=== PATIENT | female | born 1980 | race Caucasian/White ===

== ENCOUNTER 2018-12-01 11:46 | Inpatient (IN) | payer BC ==
--- NOTE | 2018-11-27 10:37 | HP ---
HISTORY OF PRESENT ILLNESS 38 year old female with neck pain. Initially began with headaches now resolved, however LUE pain, burning and neuropathy. Worsened last week with numbness. She is able to mushroom picker objects with substantial weight, however objects such as paper fall from her hand. Due for surgery Saturday with Dr. Roland. Denies RUSSELL, dizziness, changes in gait. PCP: vimal norwood Recent travel: Family History: Social History: Smoking: Alcohol: Drugs: REVIEW OF SYSTEMS CONSTITUTIONAL: Absent: fever, chills, diaphoresis, generalized weakness, malaise, loss of appetite, weight change HEENT: Absent: rhinorrhea, nasal congestion, throat pain, throat swelling, difficulty swallowing, mouth swelling, ear pain, eye pain, visual changes CARDIOVASCULAR: Absent: chest pain, syncope, palpitations, irregular heart rate, lightheadedness , peripheral edema RESPIRATORY: Absent: cough, shortness of breath, dyspnea with exertion, orthopnea, wheezing, stridor, hemoptysis GASTROINTESTINAL: Absent: abdominal pain, abdominal distension, nausea, vomiting, diarrhea, constipation, melena, hematochezia GENITOURINARY: Absent: dysuria, frequency, urgency, hesitancy, hematuria, flank pain, genital pain MUSCULOSKELETAL: LUE pain Absent: myalgia, arthralgia, joint swelling, back pain, neck pain SKIN: Absent: rash, itching, pallor HEMATOLOGIC/IMMUNOLOGIC: Absent: easy bleeding, easy bruising, lymphadenopathy, frequent infections ENDOCRINE: Absent: unexplained weight gain, unexplained weight loss, heat intolerance, cold intolerance NEUROLOGIC: paresthesias, numb, tingling, neck pain Absent: headache, focal weakness or , dizziness, unsteady gait, seizure, mental status changes, bladder or bowel incontinence PSYCHIATRIC: Absent: anxiety, depression, suicidal or homicidal ideation, hallucinations. PHYSICAL EXAMINATION: GENERAL: Awake, alert, and fully oriented, in no acute distress. HEAD: Normal with no signs of trauma. EYES: Pupils equal, round and reactive to light, extraocular movements intact, sclera anicteric, conjunctiva clear. No lid lag. EARS, NOSE, THROAT: Ears normal, nares patent, oropharynx clear without exudates. Moist mucous membranes. NECK: Normal range of motion, supple without lymphadenopathy, JVD, or masses. LUNGS: Breath sounds equal, clear to auscultation bilaterally. No wheezes, and no crackles. No accessory muscle use. HEART: Regular rate and rhythm, normal S1 and S2 without murmur, rub or gallop. ABDOMEN: Soft, nontender, not distended, normoactive bowel sounds, no guarding, no rebound, no masses. No hepatomegaly or splenomegaly. MUSCULOSKELETAL: Normal range of motion at all joints. No bony deformities or tenderness. No CVA tenderness. UPPER EXTREMITIES: 2+ pulses, warm, well-perfused. No cyanosis. No clubbing. No peripheral edema. LOWER EXTREMITIES: 2+ pulses, warm, well-perfused. No calf tenderness. No peripheral edema. NEUROLOGICAL: Cranial nerves II-XII intact. Normal speech. Normal gait. PSYCHIATRIC: Cooperative. Good eye contact. Appropriate mood and affect. SKIN: Warm, dry, normal turgor, no rashes or lesions noted, normal capillary refill. ASSESSMENT/PLAN: 1. C5-C7 anterior cervical discectomy and fusion - CBC, CMP, UA, EKG within normal limits - Recently pain medication changed from hydromorphone with ibuprofen to acetaminophen - Pre op clearance obtained from primary pcp in paper chart
[2018-11-28 08:08] VITALS: BMI 39.9
[2018-12-01] MEDS ORDERED: HEPARIN NA (PORCINE) 5,000 UNITS/ML 1ML VIAL ONE (12:12)
[2018-12-01] MEDS ORDERED: THROMBIN (BOVINE) 5,000 UNIT VIAL TP ONE (12:12)
[2018-12-01] MEDS ORDERED: BENZOIN TINCTURE SWABSTICK TP ONE ×2 (12:34→18:13)
[2018-12-01] MEDS ORDERED: MIDAZOLAM HCL 2 MG/2 ML SINGLE DOSE VIAL ONE (12:50)
[2018-12-01] MEDS ORDERED: fentaNYL CITRATE 250 MCG/5 ML VIAL ONE (12:50)
[2018-12-01] MEDS ORDERED: ceFAZolin SODIUM 1 GM VIAL ONE ×2 (12:52→18:32)
[2018-12-01] MEDS ORDERED: VANCOMYCIN 1,000 MG VIAL (RESTRICTED TO ID ONLY) ONE (12:52)
[2018-12-01] MEDS ORDERED: LIDOCAINE HCL/PF 2% SDV 5ML VIAL ONE (12:54)
[2018-12-01] MEDS ORDERED: PROPOFOL 20 ML ONE ×23 (12:54→17:42)
[2018-12-01] MEDS ORDERED: DEXAMETHASONE SOD PHOSPHATE 4 MG/1 ML VIAL ONE (13:19)
[2018-12-01] MEDS ORDERED: ROCURONIUM BROMIDE 50 MG/5 ML VIAL ONE (13:27)
[2018-12-01] MEDS ORDERED: SUCCINYLCHOLINE CHLORIDE 200 MG/10 ML VIAL ONE (13:27)
[2018-12-01] MEDS ORDERED: ceFAZolin SODIUM 1 GM VIAL IVPB ONE (13:32)
[2018-12-01] MEDS ORDERED: TRANEXAMIC ACID 1000 MG/10 ML VIAL ONE ×2 (14:11→18:12)
[2018-12-01] MEDS ORDERED: VANCOMYCIN 1,000 MG VIAL (RESTRICTED TO ID ONLY) IVPB ONE (14:42)
[2018-12-01] MEDS ORDERED: PROMETHAZINE HCL 25 MG/1 ML VIAL IVPUSH PRN (15:40)
[2018-12-01] MEDS ORDERED: ONDANSETRON 4 MG/2 ML VIAL IVPUSH PRN ×2 (15:40→15:41)
[2018-12-01] MEDS ORDERED: PROMETHAZINE HCL 25 MG/1 ML VIAL IVPB PRN (15:41)
[2018-12-01] MEDS ORDERED: DEXAMETHASONE SOD PHOSPHATE 4 MG/1 ML VIAL IVPUSH PRN (15:41)
[2018-12-01] MEDS ORDERED: HYDROmorphone *PCA* 10MG/50ML DISP.SYRIN PCA SCH (15:45)
[2018-12-01] MEDS ORDERED: METOPROLOL TARTRATE 5 MG/5 ML VIAL ONE (15:51)
[2018-12-01] MEDS ORDERED: HYDROmorphone *PCA* 10MG/50ML DISP.SYRIN PCA ONE (18:34)
[2018-12-01] MEDS ORDERED: ACETAMINOPHEN 1000 MG/100 ML VIAL (NON FORMULARY) IVPB PRN (18:57)
[2018-12-01] MEDS ORDERED: ZOLPIDEM TARTRATE 5 MG TABLET PO PRN ×2 (19:14→19:15)
--- NOTE | 2018-12-01 19:15 | PN ---
Progress Note (short form) - Note Progress Note: 38F s/p C4-C5, C5-C6, C6-C7 discectomies; C4, C5, C6, C7 partial corpectomies; C4-C5, C5-C6, C6-C7 anterior cervical decompression and instrumented fusion POD #0. -Admit to ICU x 24 hrs. for airway observation. -Maintain head of bed 45-60 degrees. -Pain medication: per anaesthesia team; NO NSAID's. -DVT PPx: -Mechanical only: MALATHI's, SCD's. -Post-op Ancef x 2 doses. -Decadron 10mg IV x 1 12/01/2018 at 7am. -f/u AM labs. -Incentive spirometry. -PT/OT/Rehab, OOB. -PWB B/L UE: -No heavy lifting, bending or twisting. -WBAT B/L LE. -d/c Lazo catheter at midnight; f/u TOV (8 hours max). -Keep dressing clean & dry. -Advance diet as tolerated. -B/L UE & LE NV checks. -Care per ICU & primary medical hospitalist teams. -Discharge planning: f/u [facility] [place] office Saturday12/12/2017; call for appointment; . Isac Roland MD (Orthopaedic Surgery).
--- NOTE | 2018-12-01 19:19 | OP ---
Operative Note - Note: Operative Date: 12/01/18 Pre-Operative Diagnosis: 1. C4-C5, C5-C6, C6-C7 disc herniations with cervical radiculopathy. 2. C4-C7 spinal stenosis with neurogenic claudication. 3. Rapid neurological decline with B/L UE & LE weakness. 4. Kyphosis. 5. C4-C7 segmental instability Operation: 1. C4-C5, C5-C6, C6-C7 discectomies. 2. C4, C5, C6, C7 partial corpectomies. 3. Insertion C4-C5, C5-C6, C6-C7 biomechanical devices. 4. C4- C7 anterior instrumentation. 5. C4-C5, C5-C6, C6-C7 arthrodesis. 6. Bone autograft. 7. Bone allograft. 8. Intra-operative biplanar fluoroscopy. 9. Intra-operative neural monitoring. Implants: Cages: C3-C4: Size #8 RTI Fortilink. C4-C5: Size #7 RTI Fortilink. C5-C6: Size #8 RTI Fortilink. C6-C7: Size #7 RTI Fortilink. Plate: 55mm Precision Spine Slimplicity Plate. 8 x 4.0x12mm screws. Surgeon: Isac Roland Court Crier: Gabriel Roland Anesthesiologist/FINGERPRINT TECHNICIAN: Dale Faye Anesthesia: General Specimens Removed: C4-C5, C5-C6, C6-C7 discs Estimated Blood Loss (mls): 180 Fluid Volume Replaced (mls): 3,500 (Crystalloid) Operative Report Dictated: Yes
--- NOTE | 2018-12-01 20:56 | CONSULT ---
Consultation: REQUESTING PROVIDER: Dr. Roland CONSULT REQUEST: We have been asked to medically evaluate this patient for ( Medical Management). HISTORY OF PRESENT ILLNESS: This is a 38 y/o woman PMHx Chronic Cervical Pain. s/p C3-C7 Cervical Discectomy and Fusion POD #0. Patient is awake, alert and oriented reports cervical and throat pain, on FACILITATOR pump. Patient denies numbness, RUSSELL, SOB, CP, AP , N/V. Lazo noted with yellow urine in collection bag. REVIEW OF SYSTEMS: CONSTITUTIONAL: Absent: fever, chills, diaphoresis, generalized weakness, malaise, loss of appetite, weight change HEENT: throat pain Absent: rhinorrhea, nasal congestion, throat swelling, difficulty swallowing, mouth swelling, ear pain, eye pain, visual changes CARDIOVASCULAR: Absent: chest pain, syncope, palpitations, irregular heart rate, lightheadedness , peripheral edema RESPIRATORY: Absent: cough, shortness of breath, dyspnea with exertion, orthopnea, wheezing, stridor, hemoptysis GASTROINTESTINAL: Absent: abdominal pain, abdominal distension, nausea, vomiting, diarrhea, constipation, melena, hematochezia GENITOURINARY: Absent: dysuria, frequency, urgency, hesitancy, hematuria, flank pain, genital pain MUSCULOSKELETAL: neck pain Absent: myalgia, arthralgia, joint swelling, back pain SKIN: Absent: rash, itching, pallor HEMATOLOGIC/IMMUNOLOGIC: Absent: easy bleeding, easy bruising, lymphadenopathy, frequent infections ENDOCRINE: Absent: unexplained weight gain, unexplained weight loss, heat intolerance, cold intolerance NEUROLOGIC: Absent: headache, focal weakness or paresthesias, dizziness, unsteady gait, seizure, mental status changes, bladder or bowel incontinence PSYCHIATRIC: Absent: anxiety, depression, suicidal or homicidal ideation, hallucinations. PHYSICAL EXAMINATION Vital Signs - 24 hr 12/01/18 12/01/18 12/01/18 12:40 12:41 18:47 Temperature 97.7 F 99.6 F Pulse Rate 98 H 118 H Respiratory 20 21 H Rate Blood Pressure 111/65 126/61 O2 Sat by Pulse 98 100 Oximetry (%) 12/01/18 12/01/18 12/01/18 19:00 19:12 19:15 Temperature Pulse Rate 114 H 110 H 112 H Respiratory 16 20 14 Rate Blood Pressure 130/65 130/65 127/66 O2 Sat by Pulse 100 100 Oximetry (%) 12/01/18 19:30 Temperature Pulse Rate 107 H Respiratory 12 Rate Blood Pressure 122/82 O2 Sat by Pulse 100 Oximetry (%) GENERAL: Awake, alert, and fully oriented, in no acute distress. HEAD: Normal with no signs of trauma. EYES: Pupils equal, round and reactive to light, extraocular movements intact, sclera anicteric, conjunctiva clear. No lid lag. EARS, NOSE, THROAT: Ears normal, nares patent, oropharynx clear without exudates. Dry mucous membranes. NECK: Limited range of motion, surgical dressing C/D/I, supple without lymphadenopathy, JVD, or masses. LUNGS: Breath sounds equal, clear to auscultation bilaterally. No wheezes, and no crackles. No accessory muscle use. HEART: Regular rate and rhythm, normal S1 and S2 without murmur, rub or gallop. ABDOMEN: Obese, hypoactive bowel sounds, soft, nontender, not distended, no guarding, no rebound, no masses. No hepatomegaly or splenomegaly. MUSCULOSKELETAL: Normal range of motion at all joints. No bony deformities or tenderness. No CVA tenderness. UPPER EXTREMITIES: 2+ pulses, warm, well-perfused. No cyanosis. No clubbing. Cap refill <2 seconds. No peripheral edema. LOWER EXTREMITIES: 2+ pulses, warm, well-perfused. No calf tenderness. No peripheral edema. SCDs NEUROLOGICAL: Cranial nerves II-XII intact. Normal speech. Gait not observed. PSYCHIATRIC: Cooperative. Good eye contact. Appropriate mood and affect. SKIN: Warm, dry, normal turgor, no rashes or lesions noted. Laboratory Results - last 24 hr 12/01/18 12/01/18 12/01/18 12:14 12:14 12:55 Serum , Qual Negative Blood Type A POSITIVE A POSITIVE Antibody Screen Negative Active Medications Generic Name Dose Route Start Last Admin Trade Name Freq PRN Reason Stop Dose Admin Acetaminophen 1,000 mg 12/01/18 19:15 Ofirmev Injection - IVPB 12/02/18 11:16 Q8H TELLO Dexamethasone Sodium Phosphate 4 mg 12/01/18 15:41 Decadron Injection - IVPUSH ONCE PRN NAUSEA AND/OR VOMITING Dexamethasone Sodium Phosphate 10 mg 12/02/18 07:00 Decadron Injection - IVPUSH 12/02/18 07:01 ONCE ONE Diphenhydramine HCl 12.5 mg 12/01/18 15:41 Benadryl Injection - IVPUSH ONCE PRN FOR ITCHING Fentanyl 50 mcg 12/01/18 15:40 Sublimaze Injection - IVPUSH [id number] PRN PAIN-PACU ORDER X 4 DOSES ONLY Hydromorphone HCl 10 mg 12/01/18 15:45 Dilaudid Learning Coach - FACILITATOR 12/08/18 15:41 FACILITATOR TELLO Protocol Lactated Ringer's 1,000 mls @ 125 mls/hr 12/01/18 19:00 Lactated Ringers Solution IV ASDIR TELLO Cefazolin Sodium/Dextrose 2 gm in 50 mls @ 100 mls/hr 12/02/18 02:00 Ancef 2 Gm Premixed Ivpb - IVPB 12/02/18 10:29 Q8H TELLO Ondansetron HCl 4 mg 12/01/18 15:40 Zofran Injection IVPUSH Q6H PRN NAUSEA AND/OR VOMITING Ondansetron HCl 4 mg 12/01/18 15:41 Zofran Injection IVPUSH Q4H PRN NAUSEA AND/OR VOMITING Promethazine HCl 12.5 mg 12/01/18 15:40 Phenergan Injection - IVPUSH Q6H PRN NAUSEA-FOR RESCUE AFTER 15 MIN Promethazine HCl 12.5 mg 12/01/18 15:41 Phenergan Injection - IVPB Q6H PRN NAUSEA AND/OR VOMITING Zolpidem Tartrate 10 mg 12/01/18 19:15 Ambien - PO HS PRN INSOMNIA ASSESSMENT/PLAN: This is a 38 y/o woman PMHx Chronic Cervical Pain. s/p C3-C7 Cervical Discectomy and Fusion POD #0. Plan: Continue Ortho regimen Neurovascular checks HOB elevated Incentive spirometry Pain Management- on FACILITATOR Pump PT Monitor CBC, BMP Monitor vitals Dispo: We will continue to follow the patient. Thank you for this consultative opportunity. Problem List - Problems (1) S/P cervical discectomy Code(s): Z98.890 - OTHER SPECIFIED POSTPROCEDURAL STATES (2) Cervical pain Code(s): M54.2 - CERVICALGIA Visit type - Emergency Visit Emergency Visit: No - New Patient This patient is new to me today: Yes Date on this admission: 12/01/18 - Critical Care Critical Care patient: No
--- NOTE | 2018-12-01 21:34 | CONSULT ---
Consult Consult Specialty:: ICU Referred by:: jose daniel Reason for Consultation:: post-op ICU monitoring - History of Present Illness Chief Complaint: neck pain History of Present Illness: 38 yr old with chronic neck pain that progressed to difficulty grasping and increasing pain that prompted surgery. denies trauma to neck but recalls spending alot of time in the same position leaning on her left arm that causing irritation and pain. feels this may have led to her current increasing neck pain. c/o occasional constipation denies chest pain, palpitations, edema, n/v, dysuria, fever, diarrhea. received flu vaccine in jul 2018 Allergies/adverse reactions: does not tolerate hydrocodone po, makes her jumpy, excitable and hungry (tolerates hydromorphone well) Travel: trip to [place] in the last 6 months Surghx: tonsilectomy at age 3 pmhx: denies htn, dm, cancers Soc hx: denies smoking, etoh and illicit drug use fmhx: denies htn, dm, cancers, rheumatological conditions - History Source History Provided By: Patient Limitations to Obtaining History: No Limitations - Past Medical History ...LMP Comment: pt has IUD - Past Surgical History Past Surgical History: Yes: Tonsillectomy (age 3) - Alcohol/Substance Use Hx Alcohol Use: Yes (socially) History of Substance Use: reports: None - Smoking History Smoking history: Never smoked Have you smoked in the past 12 months: No Home Medications - Allergies Allergies/Adverse Reactions: Allergies Allergy/AdvReac Type Severity Reaction Status Date / Time No Known Drug Allergies Allergy Verified 11/28/18 08:12 hydrocodone AdvReac Mild Verified 12/01/18 21:29 - Home Medications Home Medications: Ambulatory Orders Hydrocodone/Acetaminophen [Hydrocodone-Acetamin 7.5-300] 1 each PO BID PRN 11/28 Zolpidem Tartrate [Ambien] 10 mg PO HS 11/28/18 Docusate Sodium [Colace -] 100 mg PO BID capsule 12/02/18 Polyethylene Glycol 3350 [Miralax 119 gm Btl -] 17 gm PO DAILY bottle 12/02/18 Sennosides/Docusate Sodium [Pericolace -] 1 tablet PO DAILY tablet 12/02/18 Family Disease History - Family Disease History Family History: Denies Review of Systems - Review of Systems Constitutional: reports: No Symptoms Eyes: reports: No Symptoms HENT: reports: No Symptoms Neck: reports: Pain on Movement, Tenderness Cardiovascular: reports: No Symptoms Respiratory: reports: No Symptoms Gastrointestinal: reports: Constipation Genitourinary: reports: No Symptoms Endocrine: reports: No Symptoms Hematology/Lymphatic: reports: No Symptoms Physical Exam Vital Signs: Vital Signs Temperature 99.6 F 12/01/18 20:45 Pulse Rate 106 H 12/01/18 20:45 Respiratory Rate 15 12/01/18 20:45 Blood Pressure 111/74 12/01/18 20:45 O2 Sat by Pulse Oximetry (%) 100 12/01/18 21:13 Constitutional: Yes: No Distress, Calm Eyes: Yes: Conjunctiva Clear, EOM Intact, PERRL HENT: Yes: Normocephalic. No: Thrush Neck: Yes: Trachea Midline, Tenderness (recent post-op), Other (dressing anteriorly is CDI) Cardiovascular: Yes: Regular Rate and Rhythm. No: Murmur Respiratory: Yes: Regular, CTA Bilaterally (anterior auscultation) Gastrointestinal: Yes: Normal Bowel Sounds, Soft Extremities: Yes: WNL Edema: No Peripheral Pulses WNL: Yes Wound/Incision: Yes: Clean/Dry, Dressing Dry and Intact Neurological: Yes: Alert, Oriented ...Motor Strength: WNL Assessment/Plan 38 yr old woman with chronic neck pain, POD#0 from cervical spine fusion being monitered for airway in the ICU post-op. post-op instructions are per ortho progress note. as per operative note surgeries performed: C4-C5, C5-C6, C6-C7 discectomies; C4 , C5, C6, C7 partial corpectomies; C4-C5, C5-C6, C6-C7 anterior cervical decompression and instrumented fusion POD #0. Ortho - Maintain head of bed 45-60 degrees, pt was unable to tolerate >35deg elevation of HOB at this time, will raise as tolerated Pain control with PACKAGER MACHINE pump Post-op Ancef x 2 doses. Decadron 10mg IV x 1 12/01/2018 at 7am. f/u AM labs. Incentive spirometry PT/OT/Rehab, OOB. Keep dressing clean & dry -B/L UE & LE NV checks. DVT PPx: Mechanical only: MALATHI's, SCD's. d/c Lazo catheter at midnight; f/u TOV (8 hours max). Activity: PWB B/L UE: No heavy lifting, bending or twisting. WBAT B/L LE. FEN - IVF LR@125cc/hr -Advance diet as tolerated.
[2018-12-01] MEDS: ACETAMINOPHEN 1000 MG/100 ML VIAL (NON FORMULARY) IVPB SCH (22:08)
[2018-12-01] MEDS: LACTATED RINGERS SOLUTION 1,000 ML IV SCH (22:08)
[2018-12-02] MEDS ORDERED: ceFAZolin 2 GRAM PREMIX BAG IVPB SCH (02:00)
[2018-12-02] MEDS: ACETAMINOPHEN 1000 MG/100 ML VIAL (NON FORMULARY) IVPB SCH ×2 (03:18→12:00)
[2018-12-02] MEDS: CEFAZOLIN 2 GM/D5W 2 GM/50 ML ML IVPB SCH ×2 (03:18→09:45)
[2018-12-02] MEDS: LACTATED RINGERS SOLUTION 1,000 ML IV SCH (03:18)
[2018-12-02 06:20] LABS: HEMATOCRIT 34.4 % (32.4-45.2); HEMOGLOBIN 11.9 GM/dL (10.7-15.3); MCH 28.5 pg (25.7-33.7); MCHC 34.6 g/dl (32.0-36.0); MEAN CELL VOLUME 82.3 fl (80-96); MEAN PLT VOLUME 8.4 fl (7.5-11.1); PLATELET COUNT 238 K/MM3 (134-434); RBC 4.18 M/mm3 (3.60-5.2); RDW 13.7 % (11.6-15.6); WHITE BLOOD COUNT 11.1 K/mm3 (4.0-10.0)
[2018-12-02 06:43] LABS: ANION GAP 6 MMOL/L (8-16); BLOOD UREA NITROGEN 8 mg/dL (7-18); CALCIUM 8.1 mg/dL (8.5-10.1); CHLORIDE 104 mmol/L (98-107); CO2 28 mmol/L (21-32); CREATININE 0.9 mg/dL (0.55-1.3); GLUCOSE,RANDOM 99 mg/dL (74-106); POTASSIUM 3.9 mmol/L (3.5-5.1); SODIUM 138 mmol/L (136-145)
[2018-12-02] MEDS ORDERED: DEXAMETHASONE SOD PHOSPHATE 10 MG/1 ML VIAL IVPUSH ONE (07:00)
--- NOTE | 2018-12-02 08:10 | PN ---
Progress Note (short form) - Note Progress Note: POD #1 - s/p C4-C7 ACDF under GA With dilaudid SIX SIGMA PROJECT MANAGER for postop pain management. VSS. Pt. doing well, sitting up comfortably in bed. No complaints. Possible discharge later today. Will discontinue SIX SIGMA PROJECT MANAGER and order percocet.
[2018-12-02] MEDS ORDERED: oxyCODONE HCL 5 MG TABLET PO PRN ×2 (08:13→08:15)
--- NOTE | 2018-12-02 09:21 | PN ---
Physical Exam: SUBJECTIVE: Patient seen and examined in icu. feels well, denies any shortness of breath. ate breakfast and tolerated it, reports some soreness in throat. OBJECTIVE: bowel regimen incentive spirometer s/p C3-C7 cervical discectomy and Fusion POD #1 Vital Signs Period Temp Pulse Resp BP Sys/Danielle Pulse Ox Last 24 Hr 97.7 F-99.6 F 94-118 10-21 111-144/61-86 98-100 GENERAL: The patient is awake, alert, and fully oriented, in no acute distress. HEAD: Normal with no signs of trauma. EYES: PERRL, extraocular movements intact, sclera anicteric, conjunctiva clear. No ptosis. ENT: Ears normal, nares patent, oropharynx clear without exudates, moist mucous membranes. NECK: anterior surgical dressing c/d/ LUNGS: Breath sounds equal, diminished bilaterally HEART: Regular rate and rhythm, S1, S2 without murmur, rub or gallop. ABDOMEN: Soft, nontender, nondistended, normoactive bowel sounds, no guarding, no rebound, no hepatosplenomegaly, no masses. EXTREMITIES: no edema. NEUROLOGICAL: Normal speech, gait not observed. PSYCH: Normal mood, normal affect. Laboratory Results - last 24 hr 12/01/18 12/01/18 12/01/18 12:14 12:14 12:55 WBC RBC Hgb Hct MCV MCH MCHC RDW Plt Count MPV Sodium Potassium Chloride Carbon Dioxide Anion Gap BUN Creatinine Creat Clearance w eGFR Random Glucose Calcium Serum , Qual Negative Blood Type A POSITIVE A POSITIVE Antibody Screen Negative 12/02/18 12/02/18 05:30 05:30 WBC 11.1 H RBC 4.18 Hgb 11.9 Hct 34.4 MCV 82.3 MCH 28.5 MCHC 34.6 RDW 13.7 Plt Count 238 MPV 8.4 Sodium 138 Potassium 3.9 Chloride 104 Carbon Dioxide 28 Anion Gap 6 L BUN 8 Creatinine 0.9 Creat Clearance w eGFR > 60 Random Glucose 99 Calcium 8.1 L Serum , Qual Blood Type Antibody Screen Active Medications Generic Name Dose Route Start Last Admin Trade Name Freq PRN Reason Stop Dose Admin Acetaminophen 1,000 mg 12/01/18 19:15 12/02/18 03:18 Ofirmev Injection - IVPB 12/02/18 11:16 1,000 mg Q8H TELLO Administration Dexamethasone Sodium Phosphate 4 mg 12/01/18 15:41 Decadron Injection - IVPUSH ONCE PRN NAUSEA AND/OR VOMITING Diphenhydramine HCl 12.5 mg 12/01/18 15:41 Benadryl Injection - IVPUSH ONCE PRN FOR ITCHING Fentanyl 50 mcg 12/01/18 15:40 Sublimaze Injection - IVPUSH [id number] PRN PAIN-PACU ORDER X 4 DOSES ONLY Lactated Ringer's 1,000 mls @ 125 mls/hr 12/01/18 19:00 12/02/18 03:18 Lactated Ringers Solution IV 125 mls/hr ASDIR TELLO Administration Cefazolin Sodium/Dextrose 2 gm in 50 mls @ 100 mls/hr 12/02/18 02:00 03:18 Ancef 2 Gm Premixed Ivpb - IVPB 12/02/18 10:29 100 mls/hr Q8H TELLO Administration Ondansetron HCl 4 mg 12/01/18 15:40 Zofran Injection IVPUSH Q6H PRN NAUSEA AND/OR VOMITING Ondansetron HCl 4 mg 12/01/18 15:41 Zofran Injection IVPUSH Q4H PRN NAUSEA AND/OR VOMITING Oxycodone HCl 10 mg 12/02/18 08:13 Roxicodone - PO Q4H PRN PAIN LEVEL 6-10 Oxycodone HCl 5 mg 12/02/18 08:15 Roxicodone - PO Q4H PRN PAIN LEVEL 1-5 Promethazine HCl 12.5 mg 12/01/18 15:40 Phenergan Injection - IVPUSH Q6H PRN NAUSEA-FOR RESCUE AFTER 15 MIN Promethazine HCl 12.5 mg 12/01/18 15:41 Phenergan Injection - IVPB Q6H PRN NAUSEA AND/OR VOMITING Senna/Docusate Sodium 1 tablet 12/02/18 10:00 Pericolace - PO DAILY TELLO Zolpidem Tartrate 10 mg 12/01/18 19:15 12/01/18 22:19 Ambien - PO 10 mg HS PRN Administration INSOMNIA ASSESSMENT/PLAN:
--- NOTE | 2018-12-02 09:25 | PN ---
Physical Exam: SUBJECTIVE: Patient seen and examined this AM. Had 8/10 aching pain at the posterior neck that improved to 2/10 via PLANISHER. No longer having shooting pain in her Left Upper extremity. Incisional site pain is minimal as per patient. Denies any fevers, chills, chest pain, SOB, nausea, vomiting, diarrhea, constipation. OBJECTIVE: Vital Signs Period Temp Pulse Resp BP Sys/Danielle Pulse Ox Last 24 Hr 97.7 F-99.6 F 95-118 10-21 111-144/61-86 98-100 GENERAL: A&Ox3, NAD HEAD: NCAT EYES: PERRL, EOMI ENT: Moist mucous membranes NECK: Supple however ROM limited due to pain. Bandage site C/D/I without active drainage or surrounding erythema, edema, tenderness. LUNGS: Diminished breath sounds at the bases, no wheezes, no crackles HEART: Regular rate and rhythm, S1, S2 without murmur ABDOMEN: Obese, Soft, nontender, nondistended, + bowel sounds, no guarding EXTREMITIES: No edema. NEUROLOGICAL: Cranial nerves II through XII grossly intact. Normal speech. Sensation diminished over the Left posterior digit (however patient mentions it is improved from preop). Gross sensation intact throughout. SKIN: Warm, dry Laboratory Results - last 24 hr 12/01/18 12/01/18 12/01/18 12:14 12:14 12:55 WBC RBC Hgb Hct MCV MCH MCHC RDW Plt Count MPV Sodium Potassium Chloride Carbon Dioxide Anion Gap BUN Creatinine Creat Clearance w eGFR Random Glucose Calcium Serum , Qual Negative Blood Type A POSITIVE A POSITIVE Antibody Screen Negative 12/02/18 12/02/18 05:30 05:30 WBC 11.1 H RBC 4.18 Hgb 11.9 Hct 34.4 MCV 82.3 MCH 28.5 MCHC 34.6 RDW 13.7 Plt Count 238 MPV 8.4 Sodium 138 Potassium 3.9 Chloride 104 Carbon Dioxide 28 Anion Gap 6 L BUN 8 Creatinine 0.9 Creat Clearance w eGFR > 60 Random Glucose 99 Calcium 8.1 L Serum , Qual Blood Type Antibody Screen Active Medications Acetaminophen (Ofirmev Injection -) 1,000 mg IVPB Q8H [facility] Stop: 12/02/18 11:16 Last Admin: 12/02/18 03:18 Dose: 1,000 mg Dexamethasone Sodium Phosphate (Decadron Injection -) 4 mg IVPUSH ONCE PRN PRN Reason: NAUSEA AND/OR VOMITING Diphenhydramine HCl (Benadryl Injection -) 12.5 mg IVPUSH ONCE PRN PRN Reason: FOR ITCHING Fentanyl (Sublimaze Injection -) 50 mcg IVPUSH [id number] PRN PRN Reason: PAIN-PACU ORDER X 4 DOSES ONLY Lactated Ringer's (Lactated Ringers Solution) 1,000 mls @ 125 mls/hr IV ASDIR TELL[facility] Last Admin: 12/02/18 03:18 Dose: 125 mls/hr Cefazolin Sodium/Dextrose (Ancef 2 Gm Premixed Ivpb -) 2 gm in 50 mls @ 100 mls /hr IVPB Q8H [facility] Stop: 12/02/18 10:29 Last Admin: 12/02/18 03:18 Dose: 100 mls/hr Ondansetron HCl (Zofran Injection) 4 mg IVPUSH Q6H PRN PRN Reason: NAUSEA AND/OR VOMITING Ondansetron HCl (Zofran Injection) 4 mg IVPUSH Q4H PRN PRN Reason: NAUSEA AND/OR VOMITING Oxycodone HCl (Roxicodone -) 10 mg PO Q4H PRN PRN Reason: PAIN LEVEL 6-10 Oxycodone HCl (Roxicodone -) 5 mg PO Q4H PRN PRN Reason: PAIN LEVEL 1-5 Promethazine HCl (Phenergan Injection -) 12.5 mg IVPUSH Q6H PRN PRN Reason: NAUSEA-FOR RESCUE AFTER 15 MIN Promethazine HCl (Phenergan Injection -) 12.5 mg IVPB Q6H PRN PRN Reason: NAUSEA AND/OR VOMITING Senna/Docusate Sodium (Pericolace -) 1 tablet PO DAILY [facility] Zolpidem Tartrate (Ambien -) 10 mg PO HS PRN PRN Reason: INSOMNIA Last Admin: 12/01/18 22:19 Dose: 10 mg ASSESSMENT/PLAN: 38 y/o F s/p C4-C5, C5-C6, C6-C7 discectomies; C4, C5, C6, C7 partial corpectomies; C4-C5, C5-C6, C6-C7 anterior cervical decompression and instrumented fusion POD #1 presents to the ICU for further airway monitoring #Neuro S/P C-Spine Surgery POD #1 Hx of Insomnia -Maintain HOB 45-60 degrees -Pain control per anaesthesia team; PLANISHER to be d/c'ed today -Continue Acetaminophen, No NSAID's -Start Oxycodone this AM -IV Decadron 10mg x 1 given on 2 -PT/OT/Rehab, OOB -PWB B/L UE: No heavy lifting, bending or twisting. -WBAT B/L LE -Keep dressing clean & dry -B/L UE & LE NV checks -Resume home dose Zolpidem #Cardio Tachycardia -Likely due to pain -Maintaining MAP >65 without pressor support -Will continue to monitor #Pulmonary -No active issues -Incentive spirometry q15min -Supplemental O2 PRN to maintain SpO2>90% #GI: Hx of obesity -Regular diet -Ondansetron, Promethazine for Nausea -Senna, Docusate for Bowel Regimen -Would benefit from outpatient Obesity follow up, Dietary modifications #ID Leukocytosis -Likely stress reaction -S/P Cefazolin x 2 PeriOp -Remains Afebrile -Will continue to monitor for signs of infection -Monitor off Abx for now #FEN: -LR @ 125ml/hr -Replete lytes PRN -Regular diet #PPx -DVT: MALATHI's, SCD's #FLD: -Lazo catheter d/c'ed Code Status: Full code Dispo: Transfer to [facility]-Surg Visit type - Emergency Visit Emergency Visit: Yes ED Registration Date: 12/01/18 Care time: The patient presented to the Emergency Department on the above date and was hospitalized for further evaluation of their emergent condition. - New Patient This patient is new to me today: Yes Date on this admission: 12/02/18 - Critical Care Critical Care patient: Yes Total Critical Care Time (in minutes): 36 Critical Care Statement: The care of this patient involved high complexity decision making to prevent further life threatening deterioration of the patient 's condition and/or to evaluate & treat vital organ system(s) failure or risk of failure.
[2018-12-02] MEDS ORDERED: POLYETHYLENE GLYCOL 3350 119 GM BTL PO SCH (10:00)
[2018-12-02] MEDS ORDERED: SENNOSIDES/DOCUSATE COMBO (SENNA PLUS) TABLET (UD) PO SCH (10:00)
[2018-12-02] MEDS ORDERED: DOCUSATE SODIUM 100 MG CAPSULE (FP) PO SCH (10:00)
--- NOTE | 2018-12-02 12:37 | PN ---
Teaching Attending Note Name of Resident: Ness Laguna ATTENDING PHYSICIAN STATEMENT I saw and evaluated the patient. I reviewed the resident's note and discussed the case with the resident. I agree with the resident's findings and plan as documented. SUBJECTIVE: Pt seen and examined in the ICU. Pain relatively controlled. Denies shortness of breath or dysphagia. OBJECTIVE: Vital Signs Period Temp Pulse Resp BP Sys/Danielle Pulse Ox Last 24 Hr 97.7 F-99.6 F 94-118 10-21 111-144/61-86 98-100 Intake & Output 11/29/18 11/30/18 12/01/18 12/02/18 23:59 23:59 23:59 23:59 Intake Total 3750 1820 Output Total 2029 2200 Balance 1720 -380 Gen: NAD in chair Heart: RRR Lung: decreased breath sounds at the bases Abd: soft, nontender Ext: no edema CBC, BMP 12/02/18 05:30 12/02/18 05:30 Active Medications Dexamethasone Sodium Phosphate (Decadron Injection -) 4 mg IVPUSH ONCE PRN PRN Reason: NAUSEA AND/OR VOMITING Diphenhydramine HCl (Benadryl Injection -) 12.5 mg IVPUSH ONCE PRN PRN Reason: FOR ITCHING Docusate Sodium (Colace -) 100 mg PO BID [facility] Last Admin: 12/02/18 11:28 Dose: Not Given Fentanyl (Sublimaze Injection -) 50 mcg IVPUSH [id number] PRN PRN Reason: PAIN-PACU ORDER X 4 DOSES ONLY Lactated Ringer's (Lactated Ringers Solution) 1,000 mls @ 125 mls/hr IV ASDIR [facility] Last Admin: 12/02/18 03:18 Dose: 125 mls/hr Ondansetron HCl (Zofran Injection) 4 mg IVPUSH Q6H PRN PRN Reason: NAUSEA AND/OR VOMITING Ondansetron HCl (Zofran Injection) 4 mg IVPUSH Q4H PRN PRN Reason: NAUSEA AND/OR VOMITING Oxycodone HCl (Roxicodone -) 10 mg PO Q4H PRN PRN Reason: PAIN LEVEL 6-10 Oxycodone HCl (Roxicodone -) 5 mg PO Q4H PRN PRN Reason: PAIN LEVEL 1-5 Polyethylene Glycol (Miralax (For Daily Use) -) 17 gm PO DAILY [facility] Promethazine HCl (Phenergan Injection -) 12.5 mg IVPUSH Q6H PRN PRN Reason: NAUSEA-FOR RESCUE AFTER 15 MIN Promethazine HCl (Phenergan Injection -) 12.5 mg IVPB Q6H PRN PRN Reason: NAUSEA AND/OR VOMITING Senna/Docusate Sodium (Pericolace -) 1 tablet PO DAILY [facility] Last Admin: 12/02/18 11:27 Dose: 1 tablet Zolpidem Tartrate (Ambien -) 10 mg PO HS PRN PRN Reason: INSOMNIA Last Admin: 12/01/18 22:19 Dose: 10 mg ASSESSMENT AND PLAN: Cervical Spinal Stenosis s/p C4-C7 Discectomies/Biomechanical Device Insertion/Anterior Instrumentation -
[2018-12-02 15:15] VITALS: TEMP 98.6
--- NOTE | 2018-12-02 18:06 | DS ---
Physical Exam: SUBJECTIVE: Patient seen and examined at the bedside. Feels well, pain better controlled. OBJECTIVE: Vital Signs Period Temp Pulse Resp BP Sys/Danielle Pulse Ox Last 24 Hr 98 F-99.6 F 92-118 10-21 111-144/61-86 100-100 PHYSICAL EXAM GENERAL: The patient is awake, alert, and fully oriented, in no acute distress. HEAD: Normal with no signs of trauma. EYES: PERRL, extraocular movements intact, sclera anicteric, conjunctiva clear. ENT: Ears normal, nares patent, oropharynx clear without exudates, moist mucous membranes. NECK: dressing c/d/i. LUNGS: Breath sounds equal, clear to auscultation bilaterally, no wheezes, no crackles, no accessory muscle use. HEART: Regular rate and rhythm ABDOMEN: Soft, nontender, nondistended, normoactive bowel sounds, no guarding, no rebound, no hepatosplenomegaly, no masses. EXTREMITIES: 2+ pulses, warm, well-perfused, no edema. NEUROLOGICAL: Normal speech, gait not observed. PSYCH: Normal mood, normal affect. SKIN: c/d/i LABS Laboratory Results - last 24 hr 12/02/18 12/02/18 05:30 05:30 WBC 11.1 H RBC 4.18 Hgb 11.9 Hct 34.4 MCV 82.3 MCH 28.5 MCHC 34.6 RDW 13.7 Plt Count 238 MPV 8.4 Sodium 138 Potassium 3.9 Chloride 104 Carbon Dioxide 28 Anion Gap 6 L BUN 8 Creatinine 0.9 Creat Clearance w eGFR > 60 Random Glucose 99 Calcium 8.1 L HOSPITAL COURSE: Date of Admission:12/01/18 Date of Discharge: 12/02/18 Patient is a 38 year old female with a significant past medical history of Chronic Cervical Pain. She was admitted on 12/01/2018 and underwent 1. C4-C5, C5-C6, C6-C7 discectomies. 2. C4, C5, C6, C7 partial corpectomies. 3. Insertion C4-C5, C5-C6, C6-C7 biomechanical devices. 4. C4-C7 anterior instrumentation. 5. C4-C5, C5-C6, C6-C7 arthrodesis. 6. Bone autograft. 7. Bone allograft. 8. Intra-operative biplanar fluoroscopy. 9. Intra-operative neural monitoring. Her airway was monitored post surgery and she has remained stable. She will be discharged home with surgery follow up. 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 Keep dressing clean & dry Incentive spriometer Cardio: Tachycardia, resolved No other issues Heme: Leukocytosis, mild S/P Cefazolin x 2. Mild leukocytosis No signs of infection. Discharge home with surgery follow up. Minutes to complete discharge: 60 Discharge Summary Reason For Visit: CERVICAL DISC DISORDER Current Active Problems Cervical pain (Acute) S/P cervical discectomy (Acute) Condition: Improved - Instructions Diet, Activity, Other Instructions: Mrs Faith You were admitted on 12/11/2018 for cervical disc disorder. You had cervical disc surgery on 12/01/[address] Roland. We have monitored you in the ICU and will be sending you home today with a follow up with Dr. Roland. Here are your discharge instructions. Pain: Dr. Roland has called in pain medications to your pharmacy. If your pain is not controlled, please notify his office. Follow up: Please call Dr. Roland office for a follow up appointment. His information is enclosed. Please keep the dressing on your neck dry. Please follow up with Dr. Roland for the dressing change. If you have any questions or concerns, please call me as follows: Carie Lay [employer] [facility] @ [facility] [phone] Referrals: Isac Roland MD [Staff Physician] - Disposition: HOME - Home Medications Comprehensive Discharge Medication List: Ambulatory Orders Hydrocodone/Acetaminophen [Hydrocodone-Acetamin 7.5-300] 1 each PO BID PRN 11/28 Zolpidem Tartrate [Ambien] 10 mg PO HS 11/28/18 Docusate Sodium [Colace -] 100 mg PO BID capsule 12/02/18 Polyethylene Glycol 3350 [Miralax 119 gm Btl -] 17 gm PO DAILY bottle 12/02/18 Sennosides/Docusate Sodium [Pericolace -] 1 tablet PO DAILY tablet 12/02/18 This patient is new to me today: Yes Date on this admission: 12/02/18 Emergency Visit: Yes ED Registration Date: 12/01/18 Care time: The patient presented to the Emergency Department on the above date and was hospitalized for further evaluation of their emergent condition. Critical Care patient: No - Discharge Referral Referred to [facility] Med [facility].: No
[2018-12-02 18:26] VITALS: BP 126/89; PULSE 101
--- NOTE | 2018-12-03 08:57 | OP ---
DATE OF OPERATION: 12/01/2018 PREOPERATIVE DIAGNOSIS: 1. C4-C5, C5-C6, C6-C7 disc herniations with cervical radiculopathy 2. C4 to C7 spinal stenosis with neurogenic claudication. 3. Rapid neurological decline with bilateral upper extremity and lower extremity weakness. 4. Kyphosis. 5. C4 to C7 segmental instability. OPERATION: C4-C5, C5-C6, C6-C7 anterior cervical discectomy and fusion. IMPLANTS: As listed in operative report. SURGEON: Isac Roland MD AIR COMPRESSOR OPERATOR: Gabriel Roland MD ANESTHESIOLOGIST: Dale Faye MD SPECIMENS REMOVED: C4-C5, C5-C6, and C6-C7 discs. ESTIMATED BLOOD LOSS: 180 mL. FLUID VOLUME REPLACED: Crystalloid, 3500 m L. DICTATION ENDS HERE Isac Roland MD [id number]
--- NOTE | 2018-12-03 14:39 | PATH ---
Surgical Pathology Report Patient Name: JOSSE DONG [facility]. Rec. #: [id number] /Age/Gender: 1980 (Age: 38) / F Account: [id number] [facility]2018 Received: 12/02/2018 Reported: 12/03/2018 Physicians: Isac Roland M.D. Specimen(s) Received CERVICAL DISC C3-C7 Clinical History Cervical disc disorder Final Diagnosis CERVICAL DISC, C3-C7, DISCECTOMY AND FUSION: BENIGN INTERVERTEBRAL DISC TISSUE. Electronically Signed Hazel Arnold M.D. Gross Description Received in formalin labeled "cervical disc C3-7," is a 4.0 x 3.0 x 0.4 cm aggregate of ortega fragments of fibrocartilaginous tissue. A account representative portion is submitted in one cassette. /12/02/2018 saudi12/02/2018
== END 2018-12-02 18:28 | disposition home or self-care (01) | DRG 473 ==
LOC: JSAMEDAYSX 11:46 → JICU 21:06
PROVIDERS: ADMIT Orthopaedic Surgery Adult Reconstructive Orthopaedic Surgery; ATTEND Nurse Practitioner Family
PROC: 0RG20J0 Fusion of 2 or more Cervical Vertebral Joints with Synthetic Substitute, Anterior Approach, Anterior Column, Open Approach (ICD-10-PCS; 2018-12-01)
PROC: 4A1004G Monitoring of Central Nervous Electrical Activity, Intraoperative, Open Approach (ICD-10-PCS; 2018-12-01)
PROC: B01BZZZ Fluoroscopy of Spinal Cord (ICD-10-PCS; 2018-12-01)
PROC: 0RT30ZZ Resection of Cervical Vertebral Disc, Open Approach (ICD-10-PCS; principal; 2018-12-01 13:15)
DX: M50.121 Cervical disc disorder at C4-C5 level with radiculopathy (principal); M50.122 Cervical disc disorder at C5-C6 level with radiculopathy; M50.123 Cervical disc disorder at C6-C7 level with radiculopathy; M48.02 Spinal stenosis, cervical region; M40.202 Unspecified kyphosis, cervical region; M53.2X2 Spinal instabilities, cervical region; M54.2 Cervicalgia; R00.0 Tachycardia, unspecified; E66.9 Obesity, unspecified; Z68.39 Body mass index [BMI] 39.0-39.9, adult
CPT/HCPCS: 36415; 76000-TC-FY; 80048; 84703; 85027; 86850; 86891; 86900; 86901; 88304-TC; 94760; 97116-GP; 97161-GP; J0131; J1100; J1644